=== PATIENT | female | born 1950 | race African-American/Black ===

== ENCOUNTER 2017-08-04 09:04 | Outpatient (CLI) | payer BC ==
--- NOTE | 2017-08-04 11:53 | MMO ---
BILATERAL DIGITAL SCREENING MAMMOGRAMS: History: 67-year-old female presents for digital screening mammography. Comparison: 02-20-16, 02-19-15, 12-21-13, 10-08-11 This study is interpreted with the assistance of computer aided detection. FINDINGS: Scattered areas of fibroglandular density noted bilaterally. Small circumscribed stable mass in the inter lower left breast. No indirect or direct evidence of malignancy. IMPRESSION: BIRADS category 2 - benign findings. Continued routine screening. POS: [facility]
== END 2017-08-04 09:05 | disposition home or self-care (01) ==
LOC: SCSMAMMO 09:04
PROVIDERS: ATTEND Family Medicine
DX: Z12.31 Encounter for screening mammogram for malignant neoplasm of breast (principal)
CPT/HCPCS: 77067; G0202

== ENCOUNTER 2018-08-05 11:15 | Outpatient (CLI) | payer BC ==
--- NOTE | 2018-08-05 16:15 | MMO ---
BILATERAL DIGITAL SCREENING MAMMOGRAMS: Date: 08/05/18 HISTORY: 68-year-old female presents for digital screening mammogram. COMPARISON: 08/04/17, 02/20/16, 02/19/15, 12/21/13. FINDINGS: This patient's mammogram was interpreted with the assistance of computer-aided detection. Scattered areas of fibroglandular density are noted bilaterally. There is some stable nodularity in t he inner aspect of the left breast. IMPRESSION: BIRADS 2: Benign Finding(s) Continue annual follow-up screening digital mammograms. POS: [facility]
== END 2018-08-05 11:16 | disposition home or self-care (01) ==
LOC: SCSMAMMO 11:15
PROVIDERS: ATTEND Family Medicine
DX: Z12.31 Encounter for screening mammogram for malignant neoplasm of breast (principal)
CPT/HCPCS: 77067

== ENCOUNTER 2021-09-02 09:51 | Outpatient (CLI) | payer MEDICARE | END 2021-09-02 09:52 | disposition home or self-care (01) | LOC: BICMAMMO 09:51 | PROVIDERS: ATTEND Family Medicine | DX: Z12.31 Encounter for screening mammogram for malignant neoplasm of breast (principal); Z80.3 Family history of malignant neoplasm of breast | CPT/HCPCS: 77063; 77067 ==

== ENCOUNTER 2022-06-11 09:03 | Inpatient (IN) | payer MEDICARE ==
[2022-06-11 09:39] LABS: #Eosinphils 0.1 thou/uL (0.0-0.7); #Lymphocytes 2.2 thou/uL (1.20-3.40); #Monocytes 0.7 thou/uL (0.11-0.59); #Neutrophils 4.6 thou/uL (1.40-6.50); %Basophils 0.5 % (0.0-1.0); %Eosinophils 1.8 % (0.0-10.0); %Lymphocytes 28.4 % (21.0-51.0); %Monocytes 9.2 % (0.0-10.0); %Neutrophils 60.2 % (42.0-75.0); Hemoglobin 14.9 g/dL (12.0-16.0); Mean Corpuscular HGB CONC 33.9 g/dL (32.0-36.0); Mean Corpuscular Hemoglobin 30.2 pg (27.0-31.0); Mean Corpuscular Volume 89.1 fL (78.0-98.0); Mean Platelet Volume 6.5 fL (7.4-10.4); Platelet Count 351 thou/uL (130-400); RBC Distribution Width 12.3 % (11.5-14.5); Red Blood Cell (RBC) Count 4.92 mill/uL (4.20-5.40); White Blood Cell (WBC) Count 7.7 thou/uL (4.8-10.8)
[2022-06-11 09:56] LABS: ALT (SGPT) 43 U/L (8-55); AST (SGOT) 29 U/L (5-34); Alkaline Phosphatase 101 U/L (40-110); Anion Gap 17 mmol/L (10-20); BUN (Urea Nitrogen) 16 mg/dL (9.8-20.1); Bilirubin, Total 0.7 mg/dL (0.2-1.2); Calc. Creatinine Clearance 0 mL/min (70-130); Carbon Dioxide 29 mmol/L (23-31); Chloride 87 mmol/L (98-107); Estimated GFR 38; Globulin 4.2 g/dL (2.4-3.5); Glucose 163 mg/dL (80-115); Lipase 398 U/L (8-78); Potassium 3.1 mmol/L (3.5-5.1); Protein, Total 8.2 g/dL (5.8-8.1); Sodium 130 mmol/L (136-145)
[2022-06-11] MEDS ORDERED: Morphine 4 MG/ML VIAL ONE (10:41)
[2022-06-11] MEDS ORDERED: Pantoprazole 40 MG VIAL ONE (10:42)
[2022-06-11] MEDS ORDERED: Ondansetron PF 4 MG/2 ML Vial ONE (10:42)
[2022-06-11 12:42] LABS: Bilirubin Negative (Negative); Blood, Urine Negative (Negative); Clarity Clear (Clear); Glucose, Urine (Dipstick) Normal (Negative); Ketone, Urine Negative (Negative); Leukocyte Negative Leu/uL (Negative); Nitrite Negative (Negative); Protein, Urine (Dipstick) Negative (Neg-Trace); Specific Gravity, Urine 1.032 (1.002-1.036); Urobilinogen Normal mg/dL (Less than 2); pH, Urine 6.5 (5.0-9.0)
[2022-06-11] MEDS ORDERED: Ondansetron PF 4 MG/2 ML Vial IVP PRN (13:35)
[2022-06-11] MEDS ORDERED: hydrALAZINE 20 MG/ML VIAL SLOW IVP PRN (13:35)
[2022-06-11] MEDS ORDERED: Morphine 2 MG/ML VIAL SLOW IVP PRN (13:35)
[2022-06-11] MEDS ORDERED: Lactated Ringer's 1,000 ML IV SCH ×2 (13:45→17:15)
[2022-06-11] MEDS ORDERED: Iopamidol-370 76% 500 ML 1 ML ONE (14:36)
[2022-06-11 14:40] VITALS: BMI 41.6
[2022-06-11] MEDS: Morphine 4 MG/ML VIAL SLOW IVP PRN ×3 (16:02→23:42)
[2022-06-11] MEDS: Lactated Ringer's 1,000 ML IV SCH ×2 (19:04→23:22)
[2022-06-11] MEDS ORDERED: HYDROcodone/Acetaminophen 5/325 mg Tablet PO PRN (23:39)
[2022-06-11] MEDS ORDERED: Fentanyl 100 MCG/2 ML VIAL SLOW IVP PRN (23:44)
[2022-06-12] MEDS: Lactated Ringer's 1,000 ML IV SCH ×4 (04:24→16:13)
[2022-06-12 07:15] LABS: #Basophils 0.1 thou/uL (0.0-0.2); #Eosinphils 0.3 thou/uL (0.0-0.7); #Lymphocytes 2.6 thou/uL (1.20-3.40); #Monocytes 0.8 thou/uL (0.11-0.59); #Neutrophils 3.7 thou/uL (1.40-6.50); %Basophils 0.9 % (0.0-1.0); %Eosinophils 3.6 % (0.0-10.0); %Monocytes 10.3 % (0.0-10.0); %Neutrophils 50.1 % (42.0-75.0); Mean Corpuscular HGB CONC 33.5 g/dL (32.0-36.0); Mean Corpuscular Hemoglobin 30.2 pg (27.0-31.0); Mean Corpuscular Volume 90.2 fL (78.0-98.0); Mean Platelet Volume 6.7 fL (7.4-10.4); Platelet Count 360 thou/uL (130-400); RBC Distribution Width 12.3 % (11.5-14.5); Red Blood Cell (RBC) Count 4.62 mill/uL (4.20-5.40); White Blood Cell (WBC) Count 7.4 thou/uL (4.8-10.8)
[2022-06-12] MEDS: Enoxaparin Sodium 40 MG/0.4 ML SYRINGE SC SCH (07:34)
[2022-06-12 07:35] LABS: ALT (SGPT) 39 U/L (8-55); AST (SGOT) 30 U/L (5-34); Albumin 3.6 g/dL (3.4-4.8); Alkaline Phosphatase 92 U/L (40-110); Bilirubin, Direct 0.3 mg/dL (0.1-0.3); Bilirubin, Total 0.6 mg/dL (0.2-1.2); Protein, Total 7.3 g/dL (5.8-8.1)
[2022-06-12 07:36] LABS: Anion Gap 17 mmol/L (10-20); BUN (Urea Nitrogen) 13 mg/dL (9.8-20.1); Calc. Creatinine Clearance 74 mL/min (70-130); Calcium 9.6 mg/dL (7.8-10.44); Carbon Dioxide 25 mmol/L (23-31); Chloride 94 mmol/L (98-107); Estimated GFR 53; Glucose 117 mg/dL (80-115); Lipase 266 U/L (8-78); Sodium 133 mmol/L (136-145)
[2022-06-12] MEDS ORDERED: Fentanyl 100 MCG/2 ML VIAL ONE (09:30)
[2022-06-12] MEDS ORDERED: Lidocaine 1% MPF 2 ML VIAL ONE (09:36)
[2022-06-12] MEDS ORDERED: PROPOFOL 200 MG/20 ML VIAL ONE (09:36)
[2022-06-12] MEDS: Pantoprazole 40 MG VIAL IVP SCH (10:40)
[2022-06-12] MEDS ORDERED: Potassium Chloride 20 MEQ TAB PO SCH (11:15)
[2022-06-12] MEDS: HYDROcodone/Acetaminophen 5/325 mg Tablet PO PRN ×2 (12:12→15:44)
[2022-06-12] MEDS: Latanoprost 0.005% Ophth Soln 2.5 ml Bottle EA EYE SCH (20:50)
[2022-06-12] MEDS: cloNIDine 0.1 MG TAB PO SCH (20:50)
[2022-06-12] MEDS: Brimonidine Tartrate 0.2% Ophth Soln 5 ml Bottle L EYE SCH (20:51)
[2022-06-12] MEDS: Timolol 0.5% Ophth Soln 5 ml Bottle L EYE SCH (20:51)
[2022-06-12] MEDS ORDERED: Non-Formulary Item 1 EACH (Travoprost [Travatan Z] 2.5 ML Bot) EA EYE SCH (21:00)
[2022-06-13] MEDS: HYDROcodone/Acetaminophen 5/325 mg Tablet PO PRN ×4 (00:46→18:55)
[2022-06-13] MEDS: Lactated Ringer's 1,000 ML IV SCH ×3 (00:53→18:09)
[2022-06-13 07:03] LABS: Anion Gap 17 mmol/L (10-20); BUN (Urea Nitrogen) 7 mg/dL (9.8-20.1); Calc. Creatinine Clearance 103 mL/min (70-130); Calcium 9.5 mg/dL (7.8-10.44); Carbon Dioxide 25 mmol/L (23-31); Chloride 95 mmol/L (98-107); Estimated GFR 79; Glucose 118 mg/dL (80-115); Lipase 227 U/L (8-78); Potassium 3.2 mmol/L (3.5-5.1); Sodium 134 mmol/L (136-145)
[2022-06-13 08:39] LABS: Band 1 % (5-11); Eosinophils 2 % (0-10); Hemoglobin 13.3 g/dL (12.0-16.0); Lymphocytes 38 % (21-51); MDiff Complete? YES; Mean Corpuscular HGB CONC 33.2 g/dL (32.0-36.0); Mean Corpuscular Hemoglobin 29.9 pg (27.0-31.0); Mean Corpuscular Volume 90.1 fL (78.0-98.0); Mean Platelet Volume 6.8 fL (7.4-10.4); Monocytes 11 % (0-10); Neutrophil 48 % (42-75); Platelet Count 318 thou/uL (130-400); Platelet Morphology Comment Appears Adequate; RBC Distribution Width 12.5 % (11.5-14.5); RBC Morphology Normal; Red Blood Cell (RBC) Count 4.45 mill/uL (4.20-5.40)
[2022-06-13] MEDS ORDERED: Potassium Chloride 20 MEQ TAB PO SCH (09:00)
[2022-06-13] MEDS ORDERED: Valsartan 80 MG TAB PO SCH (09:00)
[2022-06-13] MEDS: Timolol 0.5% Ophth Soln 5 ml Bottle L EYE SCH ×2 (09:12→20:37)
[2022-06-13] MEDS: Brimonidine Tartrate 0.2% Ophth Soln 5 ml Bottle L EYE SCH ×2 (09:12→20:39)
[2022-06-13] MEDS: Enoxaparin Sodium 40 MG/0.4 ML SYRINGE SC SCH (09:13)
[2022-06-13] MEDS: Amlodipine 5 MG TAB PO SCH (09:13)
[2022-06-13] MEDS: cloNIDine 0.1 MG TAB PO SCH ×2 (09:13→20:46)
[2022-06-13] MEDS: Pantoprazole 40 MG VIAL IVP SCH (09:17)
[2022-06-13] MEDS: hydrALAZINE 25 MG TAB PO SCH (20:39)
[2022-06-13] MEDS: Latanoprost 0.005% Ophth Soln 2.5 ml Bottle EA EYE SCH (20:41)
[2022-06-14] MEDS: Lactated Ringer's 1,000 ML IV SCH ×2 (00:42→10:15)
[2022-06-14] MEDS: HYDROcodone/Acetaminophen 5/325 mg Tablet PO PRN (00:43)
[2022-06-14] MEDS: cloNIDine 0.1 MG TAB PO SCH ×2 (00:53→08:35)
[2022-06-14] MEDS ORDERED: Polyethylene Glycol 3350 17 GM Packet PO SCH ×2 (03:15→09:00)
[2022-06-14 06:55] LABS: Anion Gap 14 mmol/L (10-20); BUN (Urea Nitrogen) 6 mg/dL (9.8-20.1); Calc. Creatinine Clearance 98 mL/min (70-130); Calcium 9.3 mg/dL (7.8-10.44); Carbon Dioxide 28 mmol/L (23-31); Chloride 101 mmol/L (98-107); Estimated GFR 75; Glucose 105 mg/dL (80-115); Lipase 133 U/L (8-78); Potassium 3.7 mmol/L (3.5-5.1); Sodium 139 mmol/L (136-145)
[2022-06-14 08:22] VITALS: BP 166/80; TEMP 98.1
[2022-06-14] MEDS: Timolol 0.5% Ophth Soln 5 ml Bottle L EYE SCH (08:33)
[2022-06-14] MEDS: hydrALAZINE 25 MG TAB PO SCH (08:34)
[2022-06-14] MEDS: Brimonidine Tartrate 0.2% Ophth Soln 5 ml Bottle L EYE SCH (08:34)
[2022-06-14] MEDS: Amlodipine 5 MG TAB PO SCH (08:35)
[2022-06-14] MEDS: Pantoprazole 40 MG VIAL IVP SCH (08:36)
[2022-06-14] MEDS: Enoxaparin Sodium 40 MG/0.4 ML SYRINGE SC SCH (08:36)
[2022-06-15] MEDS ORDERED: Polyethylene Glycol 3350 17 GM Packet PO SCH (09:00)
== END 2022-06-14 15:15 | disposition home or self-care (01) | DRG 439 ==
LOC: ERS 09:03 → T4-A 13:35
PROVIDERS: ADMIT Internal Medicine; ATTEND Internal Medicine
PROC: 0DJ08ZZ Inspection of Upper Intestinal Tract, Via Natural or Artificial Opening Endoscopic (ICD-10-PCS; principal; 2022-06-12)
DX: K85.90 Acute pancreatitis without necrosis or infection, unspecified (principal); N17.9 Acute kidney failure, unspecified; Z20.822 Contact with and (suspected) exposure to COVID-19; E78.5 Hyperlipidemia, unspecified; I25.10 Atherosclerotic heart disease of native coronary artery without angina pectoris; K21.9 Gastro-esophageal reflux disease without esophagitis; H40.9 Unspecified glaucoma; E86.0 Dehydration; E87.6 Hypokalemia; I12.9 Hypertensive chronic kidney disease with stage 1 through stage 4 chronic kidney disease, or unspecified chronic kidney disease; N18.30 Chronic kidney disease, stage 3 unspecified; Z90.49 Acquired absence of other specified parts of digestive tract; Z88.0 Allergy status to penicillin; Z79.899 Other long term (current) drug therapy; Z98.51 Tubal ligation status; Z90.710 Acquired absence of both cervix and uterus; I25.2 Old myocardial infarction
CPT/HCPCS: 36415; 74177; 80048; 80053; 80076; 81003; 82550; 83690; 85025; 93005; 96361; 96374; 96375; C9113; J1650; J2270; J2405; J2704; J3010; J7120; Q9967; U0003; U0005

== ENCOUNTER 2022-09-24 08:49 | Outpatient (CLI) | payer MEDICARE | END 2022-09-24 08:50 | disposition home or self-care (01) | LOC: BICMAMMO 08:49 | PROVIDERS: ATTEND Student in an Organized Health Care Education/Training Program | DX: Z12.31 Encounter for screening mammogram for malignant neoplasm of breast (principal); Z13.820 Encounter for screening for osteoporosis; Z78.0 Asymptomatic menopausal state; Z80.3 Family history of malignant neoplasm of breast | CPT/HCPCS: 77063; 77067; 77080 ==

== ENCOUNTER 2023-02-10 11:50 | Outpatient (CLI) | payer MEDICARE | END 2023-02-10 11:51 | disposition home or self-care (01) | LOC: BICRAD 11:50 | PROVIDERS: ATTEND Student in an Organized Health Care Education/Training Program | DX: R05.3 Chronic cough (principal) | CPT/HCPCS: 71046 ==

== ENCOUNTER 2023-11-10 10:24 | Outpatient (CLI) | payer MEDICARE | END 2023-11-10 10:25 | disposition home or self-care (01) | LOC: BICRAD 10:24 | PROVIDERS: ATTEND Family Medicine | DX: M54.50 Low back pain, unspecified (principal); M47.816 Spondylosis without myelopathy or radiculopathy, lumbar region; M89.38 Hypertrophy of bone, other site; M48.8X7 Other specified spondylopathies, lumbosacral region | CPT/HCPCS: 72100 ==